=== PATIENT | male | born 1990 | race Caucasian/White ===

== ENCOUNTER 2017-01-04 11:29 | Emergency (ER) | payer OTHER ==
[~2017-01-04] VITALS: Ht 175.3 cm; Wt 95.5 kg
[2017-01-04] MEDS ORDERED: ZYRT10CA PO (11:40)
[2017-01-04] MEDS ORDERED: ADACEL/BOOSTRIX VACCINE (DIPHTH/PERTUSS/ACELL/TETANUS)0.5ML SYR (90715) IM ONE (12:30)
[2017-01-04] MEDS ORDERED: PERCOCET 5MG/325MG TAB PO ONE (12:30)
[2017-01-04 12:37] VITALS: BP 129/78
== END 2017-01-04 12:39 | disposition home or self-care (01) ==
LOC: M ED 11:29
DX: S01.01XA Laceration without foreign body of scalp, initial encounter (principal); W22.8XXA Striking against or struck by other objects, initial encounter; Y92.019 Unspecified place in single-family (private) house as the place of occurrence of the external cause; Y93.89 Activity, other specified; Y99.8 Other external cause status

== ENCOUNTER → 2017-02-13 | Outpatient (REF) | payer BC ==
[~2017-02-13] MED LIST: ZYRT10CA PO
== END ==
LOC: M SFHCPLAZ 13:01
PROVIDERS: ATTEND Family Medicine
DX: D22.4 Melanocytic nevi of scalp and neck (principal)

== ENCOUNTER → 2020-06-27 | Outpatient (CLI) | payer OTHER ==
--- NOTE | 2020-06-27 15:31 | REP ---
INDICATION: LEFT TESTICULAR PAIN. COMPARISON: Comparison study November 17, 2008.. TECHNIQUE: High-resolution bilateral scrotal sonography. FINDINGS: Testicular parenchyma is homogeneous on sonography. No intratesticular mass lesion is seen. There are small bilateral hydroceles containing hypoechoic fluid consistent with proteinaceous or cellular debris. There is a single microcalcification in each testicle. This is not felt to be clinically significant. Epididymi are unremarkable. Testicular Doppler flow is normal bilaterally. Resistive indices are measured at 0.66 on the right and 0.55 on the left. Right testicular dimensions are 5.2 x 2.5 x 3.5 cm. The left testis measures 4.5 x 2.5 x 3.3 cm. IMPRESSION: Small bilateral hydroceles. Otherwise unremarkable scrotal sonography. <Electronically signed by Ankush Leblanc > 06/27/20 [id number]
== END ==
LOC: M RAD 11:45
PROVIDERS: ATTEND Physician Assistant Medical
DX: N50.812 Left testicular pain (principal); N43.3 Hydrocele, unspecified

== ENCOUNTER → 2020-06-28 | Outpatient (REF) | payer OTHER ==
[2020-06-28 13:41] LABS: APPEARANCE, URINE CLEAR (CLEAR); BACTERIA, URINE AUTO NEGATIVE (NEGATIVE); BILIRUBIN, URINE AUTO NEGATIVE (NEGATIVE); BLOOD, URINE BLOOD NEGATIVE (NEGATIVE); COLOR, URINE STRAW (YELLOW); GLUCOSE, URINE (UA) AUTO NEGATIVE (NEGATIVE); KETONE, URINE AUTO NEGATIVE (NEGATIVE); LEUKOCYTE ESTERASE, URINE AUTO NEGATIVE (NEGATIVE); NITRITE, URINE AUTO NEGATIVE (NEGATIVE); PROTEIN, URINE AUTO NEGATIVE (NEGATIVE); RBC, URINE AUTO 0 /HPF (0-3); SPECIFIC GRAVITY URINE AUTO 1.009 (1.002-1.035); SQUAMOUS EPITHELIAL CELL UR AU 0 /HPF (0-6); UROBILINOGEN, URINE AUTO 0.2 mg/dL (0.0-2.0); WBC, URINE AUTO 0 /HPF (0-3)
[2020-06-28 15:16] LABS: CHLAMYDIA DNA AMPLIFICATION NEGATIVE (NEGATIVE); GC DNA AMPLIFICATION NEGATIVE (NEGATIVE)
== END ==
LOC: M SMT 12:36
PROVIDERS: ATTEND Nurse Practitioner Family
DX: N50.819 Testicular pain, unspecified (principal)

== ENCOUNTER → 2023-02-13 | Outpatient (REF) | payer OTHER ==
[2023-02-15 15:09] LABS: TESTOSTERONE FREE (DIRECT) 12.7 pg/mL (8.7-25.1)
== END ==
LOC: M LAB REF 16:46
PROVIDERS: ATTEND Physician Assistant Medical
DX: R68.82 Decreased libido (principal); R53.83 Other fatigue

== ENCOUNTER → 2023-07-10 | Outpatient (REF) | payer OTHER ==
[2023-07-10 18:28] LABS: GC DNA AMPLIFICATION NEGATIVE (NEGATIVE)
== END ==
LOC: M LAB REF 16:19
PROVIDERS: ATTEND Nurse Practitioner Family
DX: M54.50 Low back pain, unspecified (principal)